=== PATIENT | male | born 1985 | race Caucasian/White ===

== ENCOUNTER 2017-03-16 16:41 | Emergency (ER) | payer BC, OTHER ==
[~2017-03-16] VITALS: Ht 193 cm; Wt 106.5 kg
[~2017-03-16 16:41] MED LIST: Z.0.NO CURRENT MEDS
[2017-03-16 16:43] VITALS: BP 155/94; PULSE 120; RESP 16; TEMP 98.2; O2SAT 98
[2017-03-16 17:51] LABS: AUTOMATED NEUTROPHIL # 8.2 TH/MM3 (1.8-7.7); BASOPHIL # 0.1 TH/MM3 (0-0.2); BASOPHIL % 0.7 % (0.0-2.0); EOSINOPHIL # 0.5 TH/MM3 (0-0.4); EOSINOPHIL % 4.3 % (0.0-4.0); HEMATOCRIT 42.9 % (39.0-51.0); HEMOGLOBIN 14.7 GM/DL (13.0-17.0); LYMPH % 14.3 % (9.0-44.0); LYMPHOCYTE # 1.6 TH/MM3 (1.0-4.8); MEAN CELL VOLUME 91.4 FL (80.0-100.0); MEAN CORPUSCULAR HEMOGLOBIN 31.2 PG (27.0-34.0); MEAN CORPUSCULAR HGB CONC 34.2 % (32.0-36.0); MEAN PLATELET VOLUME 9.6 FL (7.0-11.0); MONO % 7.1 % (0.0-8.0); MONOCYTE # 0.8 TH/MM3 (0-0.9); NEUT % 73.6 % (16.0-70.0); PLATELET COUNT 170 TH/MM3 (150-450); RED CELL DISTRIBUTION WIDTH 13.6 % (11.6-17.2); WHITE BLOOD COUNT 11.2 TH/MM3 (4.0-11.0)
[2017-03-16 18:03] LABS: INTERNATIONAL NORMALIZED RATIO 1.1 RATIO; PROTHROMBIN TIME - PATIENT 10.7 SEC (9.8-11.6)
[2017-03-16 18:08] LABS: ALBUMIN 3.8 GM/DL (3.4-5.0); ALKALINE PHOSPHATASE 91 U/L (45-117); ALT (GPT) 55 U/L (12-78); AST (GOT) 43 U/L (15-37); BICARBONATE 31.4 MEQ/L (21.0-32.0); BLOOD UREA NITROGEN 14 MG/DL (7-18); CALCIUM 8.6 MG/DL (8.5-10.1); CHLORIDE 106 MEQ/L (98-107); CREATININE 1.26 MG/DL (0.60-1.30); GLOMERULAR FILTRATION RATE 67 ML/MIN (>89); GLUCOSE,RANDOM 77 MG/DL (74-106); SODIUM (NA) 141 MEQ/L (136-145); TOTAL BILIRUBIN ADULT 0.4 MG/DL (0.2-1.0)
--- NOTE | 2017-03-16 18:30 | PD ---
HPI Chief Complaint: Musculoskeletal Complaint Time Seen by Provider: 18:19 Travel History International Travel<30 days: No Contact w/Intl Traveler<30days: No Traveled to known affect area: No History of Present Illness HPI 31-year-old male presents to the emergency department for evaluation of right leg pain. Patient states he has been working out. He reports right lower back pain That radiates down his right leg, but right calf pain as well. 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 He states he thinks it is just muscular pain, with history DVT, he would like to make sure he does not have a DVT. Patient states that he is on Coumadin 5 mg by mouth. However, he ran out 1 day ago and has not taken it. He denies any fevers or chills. He reports some mild congestion, but no chest pain or shortness of breath. No abdominal pain. No nausea, vomiting, diarrhea. Reports no other medical problems and takes no other prescriptions. Moderate severity. No exacerbating or alleviating factors. No associated symptoms. PFSH Past Medical History Hx Anticoagulant Therapy: Yes (COUMADIN) Past Surgical History Tonsillectomy: Yes Social History Alcohol Use: Yes (5 DRINKS PER WEEK) Tobacco Use: Yes Substance Use: No Allergies-Medications (Allergen,Severity, Reaction): Coded Allergies: No Known Allergies (Verified Allergy, Mild, 03/16/17) Reported Meds & Prescriptions Reported Meds & Active Scripts Active Warfarin 5 Mg Tab 5 Mg PO DAILY Lovenox Inj (Enoxaparin Sodium) 100 Mg/Ml Syr 100 Mg SQ BID Review of Systems Except as stated in HPI: all other systems reviewed are Neg Physical Exam Narrative GENERAL: Well-nourished, well-developed male patient, ambulatory. Afebrile. SKIN: Focused skin assessment warm/dry. HEAD: Normocephalic. Atraumatic. EYES: No scleral icterus. No injection or drainage. NECK: Supple, trachea midline. No JVD or lymphadenopathy. CARDIOVASCULAR: Regular rate and rhythm without murmurs, gallops, or rubs. Right pedal pulse is 2+. RESPIRATORY: Breath sounds equal bilaterally. No accessory muscle use. Lungs sounds are clear to auscultation. GASTROINTESTINAL: Abdomen soft, non-tender, nondistended. MUSCULOSKELETAL: No cyanosis, or edema. Tenderness to palpation over right posterior calf. BACK: Nontender without obvious deformity. No CVA tenderness. Patient has tenderness over right lumbar paraspinal musculature. Data Data Last Documented VS Vital Signs Date Time Temp Pulse Resp B/P (MAP) Pulse Ox O2 Delivery O2 Flow Rate FiO2 03/16/17 20:36 81 18 148/71 (96) 99 Room Air 03/16/17 16:43 98.2 Orders Orders Complete Blood Count With Diff (03/16/17 16:53) Act Partial Throm Time (Ptt) (03/16/17 16:53) Prothrombin Time / Inr (Pt) (03/16/17 16:53) Comprehensive Metabolic Panel (03/16/17 16:53) Us Leg Venous Doppler (03/16/17 ) Warfarin (Coumadin) (03/16/17 20:30) Enoxaparin Inj (Lovenox Inj) (03/16/17 20:30) Ed Discharge Order (03/16/17 20:37) Labs Laboratory Tests Test 03/16/17 17:15 White Blood Count 11.2 TH/MM3 Red Blood Count 4.70 MIL/MM3 Hemoglobin 14.7 GM/DL Hematocrit 42.9 % Mean Corpuscular Volume 91.4 FL Mean Corpuscular Hemoglobin 31.2 PG Mean Corpuscular Hemoglobin Concent 34.2 % Red Cell Distribution Width 13.6 % Platelet Count 170 TH/MM3 Mean Platelet Volume 9.6 FL Neutrophils (%) (Auto) 73.6 % Lymphocytes (%) (Auto) 14.3 % Monocytes (%) (Auto) 7.1 % Eosinophils (%) (Auto) 4.3 % Basophils (%) (Auto) 0.7 % Neutrophils # (Auto) 8.2 TH/MM3 Lymphocytes # (Auto) 1.6 TH/MM3 Monocytes # (Auto) 0.8 TH/MM3 Eosinophils # (Auto) 0.5 TH/MM3 Basophils # (Auto) 0.1 TH/MM3 CBC Comment DIFF FINAL Differential Comment Prothrombin Time 10.7 SEC Prothromb Time International Ratio 1.1 RATIO Activated Partial Thromboplast Time 27.2 SEC Blood Urea Nitrogen 14 MG/DL Creatinine 1.26 MG/DL Random Glucose 77 MG/DL Total Protein 7.0 GM/DL Albumin 3.8 GM/DL Calcium Level 8.6 MG/DL Alkaline Phosphatase 91 U/L Aspartate Amino Transf (AST/SGOT) 43 U/L Alanine Aminotransferase (ALT/SGPT) 55 U/L Total Bilirubin 0.4 MG/DL Sodium Level 141 MEQ/L Potassium Level 4.2 MEQ/L Chloride Level 106 MEQ/L Carbon Dioxide Level 31.4 MEQ/L Anion Gap 4 MEQ/L Estimat Glomerular Filtration Rate 67 ML/MIN [facility] Medical Decision Making Medical Screen Exam Complete: Yes Emergency Medical Condition: Yes Medical Record Reviewed: Yes Interpretation(s) Last Impressions Lower Extremity Ultrasound 03/16/17 0000 Signed Impressions: Service Date/Time: Thursday, March 16, 2017 19:00 - CONCLUSION: Occlusive and nonocclusive thrombus identified in the right lower extremity involving the femoral, popliteal, and posterior tibial veins. Al Howard MD Differential Diagnosis DVT versus muscle strain versus sciatica Narrative Course 31-year-old male presents to the emergency department for evaluation of right leg pain with history of DVT. Labs were completed in triage. CBC shows slight leukocytosis of 11.2. CMP shows no acute abnormality. PT is 10.7, INR 1.1, PTT 27.2. Venous Doppler ultrasound of the right lower extremity is ordered and pending. US shows occlusive and nonocclusive thrombus identified in the right lower extremity involving the femoral, popliteal, and posterior tibial veins. I discussed case with attending physician, Dr. ha. Patient states he is not currently insured. I discussed Lovenox injections with Coumadin and follow-up with his physician that he is seen in the past. His only health clinic. He verbalizes agreement to this plan. He'll be given first doses here in the emergency department discharge and prescriptions. He is to return for any acute worsening of symptoms. I instructed him that he must fill prescriptions and take medications. He verbalizes agreement. The patient was discharged in stable condition with instructions, including return instructions and follow up instructions. Diagnosis Primary Impression: Right leg DVT Qualified Codes: I82.401 - Acute embolism and thrombosis of unspecified deep veins of right lower extremity Referrals: Primary Care Physician call for appointment Patient Instructions: Deep Venous Thrombosis (ED), General Instructions Additional Instructions: Give yourself Lovenox injections twice daily as directed. I've given you a coupon for this. Take warfarin 5 mg tablets daily. This is $4 at [facility]. Follow-up with the physician you have been seeing in [place] or the [place] [facility] in the next 2-3 days. Return to the emergency department for any acute worsening of symptoms. Med/Other Pt SpecificInfo: Prescription(s) given Scripts Warfarin (Warfarin) 5 Mg Tab 5 MG PO DAILY for Blood Clot Prevention, #30 TAB 0 Refills Prov: Kellee Pisano 03/16/17 Enoxaparin Inj (Lovenox Inj) 100 Mg/Ml Syr 100 MG SQ BID for Blood Clot Prevention, #10 SYRINGE 0 Refills Prov: Kellee Pisano 03/16/17 Disposition: 01 DISCHARGE HOME Condition: Stable Kellee Pisano Mar 16, 2017 18:30
--- NOTE | 2017-03-16 20:04 | RADRPT ---
EXAM DATE/TIME: 03/16/2017 19:00 [facility] COMPARISON: No previous studies available for comparison. INDICATIONS : Right leg pain. MEDICAL HISTORY : Anticoagulant therapy. Alcohol use. SURGICAL HISTORY : Tonsillectomy. ENCOUNTER: Initial ACUITY: 3 days PAIN SCORE: 6/10 LOCATION: Right leg. TECHNIQUE: Venous ultrasound of the leg was performed from the inguinal ligament to the proximal calf. Real-alyse e, color Doppler and spectral tracing, compression and augmentation techniques were used. FINDINGS: Occlusive thrombus is seen of the distal superficial femoral vein, popliteal vein, and proximal poste rior tibial vein. Nonocclusive thrombus identified in the mid superficial femoral vein. No evidence o f thrombus in the common femoral vein and iliac vein. CONCLUSION: Occlusive and nonocclusive thrombus identified in the right lower extremity involving the femoral, po pliteal, and posterior tibial veins. Al Howard MD on March 16, 2017 at 20:01 Board Certified Radiologist. This report was verified electronically.
[2017-03-16] MEDS ORDERED: ENOX100P SQ (20:29)
[2017-03-16] MEDS ORDERED: WARF-23 PO (20:29)
[2017-03-16] MEDS ORDERED: ENOXAPARIN SODIUM 100 MG/ML SYRINGE SQ ONE (20:30)
[2017-03-16] MEDS ORDERED: WARFARIN SOD 5 MG TAB PO ONE (20:30)
[2017-03-16 20:36] VITALS: BP 148/71; PULSE 81; RESP 18; O2SAT 99
== END 2017-03-16 20:55 | disposition home or self-care (01) ==
LOC: NEPE 16:41
DX: I82.401 Acute embolism and thrombosis of unspecified deep veins of right lower extremity (principal); D72.829 Elevated white blood cell count, unspecified; R09.81 Nasal congestion; M54.5 Low back pain; Z86.711 Personal history of pulmonary embolism; Z86.718 Personal history of other venous thrombosis and embolism; Z72.0 Tobacco use; Z79.01 Long term (current) use of anticoagulants; Z79.899 Other long term (current) drug therapy
CPT/HCPCS: 80053; 85025; 85610; 85730; 93971; 96372; 99285; J1650